=== PATIENT | male | born 1995 | race Caucasian/White ===

== ENCOUNTER 2021-11-04 17:58 | Emergency (ER) | payer BC, SELFPAY ==
[2021-11-04 18:09] VITALS: BP 132/94; PULSE 100; RESP 16; TEMP 37.2; O2SAT 99
--- NOTE | 2021-11-04 18:09 | ED.URI ---
HPI - URI/Sore Throat General Chief Complaint: Upper Respiratory Infection Stated Complaint: CONGESTION/HEADACHE/FEVER/BODY ACHES Time Seen by Provider: 11/04/21 18:09 Source: patient, family, RN notes reviewed and old records reviewed Mode of arrival: ambulatory Limitations: no limitations History of Present Illness HPI Narrative: 26 year old male accompanied by spouse with complaints of 3 day history of cough, congestion, sinus congestion with some headache pain, body aches, and fevers up to 100.8F today. Patient reports that he had the COVID vaccinations X2 no Booster or flu shot taken, Patient states that he has been taking Mucinex and Tylenol for his symptoms. MD elicited complaint: fever, cough, rhinorrhea, nasal congestion and other (headache) Onset (ago): day(s) (3) Consistency: constant Treatments prior to arrival: acetaminophen and other (mucinex) Related Data Allergies Allergy/AdvReac Type Severity Reaction Status Date / Time No Known Allergies Allergy Verified 11/04/21 18:08 Review of Systems Review of Systems: CONSTITUTIONAL: Positive for fever, chills, or sweats. EYES: Denies visual changes, redness, or discharge. ENT: Positive for rhinorrhea, congestion, no sore throat, or otalgia. CARDIOVASCULAR: Denies chest pain, palpitations, or edema. RESPIRATORY: Positive for cough or no dyspnea. GASTROINTESTINAL: Denies abdominal pain, nausea, vomiting, or diarrhea. GENITOURINARY: Denies dysuria or hematuria. SKIN: Denies rash or itching. MUSCULOSKELETAL: Denies back pain, joint pain,positive for body aches NEUROLOGIC: Positive for headache, no numbness, or weakness. PSYCHIATRIC: Denies anxiety or depression. All systems reviewed & are unremarkable except as noted in HPI and below PMFSH Past Medical History Medical History (Updated 11/04/21 @ 18:28 by Loan Echavarria NP) History of ear infections as a child Surgical History Surgical History (Updated 11/04/21 @ 18:22 by Loan Echavarria NP) History of placement of ear tubes Social History Social History (Updated 11/04/21 @ 18:23 by Loan Echavarria NP) Smoking status: Current every day smoker Tobacco type: e-cigarettes/vaping Alcohol intake: current Alcohol use details: social Substance use type: marijuana Living arrangements: with family Gender identity (if verbalized by the patient): Male Exam Narrative: GENERAL: Well-appearing, well-nourished, and in no acute distress. HEAD: Normocephalic, atraumatic. EYES: PERRLA and EOMI. ENT: Nares red with clear rhinorrhea no epistaxis. Mucous membranes moist.TM's normal with good light reflex, throat mild redness with no lesions or exudates, NECK: Supple.no lymphadenopathy CHEST: Clear to auscultation. No respiratory distress.Cough noted no tachypnea SAO2 99% on room air HEART: Regular rate and rhythm. No murmur heard. Normal peripheral pulses. ABDOMEN: Soft, nontender, nondistended, normal active bowel sounds. EXTREMITIES: Normal range of motion. No edema. SKIN: Warm, dry, no rash. NEURO: No focal deficits. Alert and oriented x3. Course Course Level of Care: Express Care Visit Vital Signs Vital signs: Vital Signs Temperature 37.2 C 11/04/21 18:09 Pulse Rate 100 11/04/21 18:09 Respiratory Rate 16 11/04/21 18:09 Blood Pressure 132/94 H 11/04/21 18:09 Pulse Oximetry 99 11/04/21 18:09 Temperature 37.2 C 11/04/21 18:09 Pulse Rate 100 11/04/21 18:09 Respiratory Rate 16 11/04/21 18:09 Blood Pressure 132/94 H 11/04/21 18:09 Pulse Oximetry 99 11/04/21 18:09 MDM - URI/Sore Throat Differential Diagnosis Differential diagnosis: Likely upper respiratory infection, sinusitis, viral infection, influenza and other Medical Records Attestation: I reviewed the patient's medical records. Lab Data Attestation: I reviewed the patient's lab results. Lab results narrative: Influenza A positive, Influenza B negative Covid antigen negative Labs: Lab Results 05
== END 2021-11-04 18:46 | disposition home or self-care (01) ==
PROVIDERS: Emergency Provider Registered Nurse; PCP Physician Assistant
DX: J10.1 Influenza due to other identified influenza virus with other respiratory manifestations (principal); Z20.822 Contact with and (suspected) exposure to COVID-19; F17.290 Nicotine dependence, other tobacco product, uncomplicated
CPT/HCPCS: 87426; 87804; 99213; C9803; G0463

== ENCOUNTER 2022-06-17 15:44 | Emergency (ER) | payer OTHER, BC, SELFPAY ==
[2022-06-17 15:54] VITALS: BP 131/77; PULSE 90; RESP 18; TEMP 36.9; O2SAT 100
--- NOTE | 2022-06-17 16:28 | ED.WOUNDLAC ---
HPI - Wound/Laceration General Chief Complaint: Wound/Laceration Stated Complaint: Cut Finger Lt Hand Source: patient Mode of arrival: ambulatory History of Present Illness HPI narrative: This is a 27-year-old male who presented to our urgent care with complaints of a laceration to his left pointer finger. 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 The patient denies SOB, CP, palpitation, extremity numbness, lightheadedness, dizziness, constipation, diarrhea, chills, or fever,sensations present, no neurovascular deficiency capillary refill within normal limits Related Data Home Medications Medication Instructions Recorded Confirmed No Home Medications 06/17/22 06/17/22 Allergies Allergy/AdvReac Type Severity Reaction Status Date / Time No Known Allergies Allergy Verified 06/17/22 15:51 Review of Systems Review of Systems: A 14 organ system Review of Systems was performed and pertinent positives included in the HPI, otherwise remaining ROS is negative. [facility] Past Medical History Medical History (Updated 11/05/21 @ 00:01 by Maynor Lloyd) History of ear infections as a child Surgical History Surgical History (Updated 11/04/21 @ 18:22 by Loan Echavarria NP) History of placement of ear tubes Social History Social History (Updated 11/04/21 @ 18:23 by Loan Echavarria NP) Smoking status: Current every day smoker Tobacco type: e-cigarettes/vaping Alcohol intake: current Alcohol use details: social Substance use type: marijuana Gender identity (if verbalized by the patient): Male Exam Narrative: GENERAL: This is a well-nourished, well-developed patient, in no apparent distress. HEAD: normocephalic, atraumatic. EYES: PERRL. Sclera clear/white. Vision is grossly intact. EARS: External ears normal, auditory canals clear and without drainage, TMs normal without perforation. Hearing grossly intact. NOSE: External nose normal with no obvious nasal discharge, nares without redness, no rhinorrhea. THROAT: Mucous membranes moist, posterior pharynx clear. NECK: Neck supple, non-tender without lymphadenopathy, masses or thyromegaly. CARDIOVASCULAR: Regular rate and rhythm without murmurs, gallops, or rubs. RESPIRATORY: Clear to auscultation. Breath sounds equal bilaterally. No wheezes, rales, or rhonchi. GASTROINTESTINAL: Abdomen soft, non-tender, nondistended. Bowel sounds are active. No hepato-splenomegaly, or palpable masses. No guarding. SKIN: warm, intact with no suspicious lesions or rash, good texture and turgor. NEURO: awake, alert, and oriented to person, place and time. There were no obvious focal neurologic abnormalities. EXTREMITIES: Normal range of motion. No edema. No calf tenderness. Laceration on the left when a finger laceration from the nail bed approximately 2 cm in size no obvious deep tissue injury Course Course Emergency Course: Patient will be given lidocaine 1% 5 mL with 5.0 Ethilon and Dermabond to laceration site Level of Care: Express Care Visit Vital Signs Vital signs: Vital Signs Temperature 98.5 F 06/17/22 15:54 Pulse Rate 90 06/17/22 15:54 Respiratory Rate 18 06/17/22 15:54 Blood Pressure 131/77 06/17/22 15:54 Pulse Oximetry 100 06/17/22 15:54 Oxygen Delivery Room Air 06/17/22 15:54 Temperature 98.5 F 06/17/22 15:54 Pulse Rate 90 06/17/22 15:54 Respiratory Rate 18 06/17/22 15:54 Blood Pressure 131/77 06/17/22 15:54 Pulse Oximetry 100 06/17/22 15:54 Oxygen Delivery Room Air 06/17/22 15:54 Procedures Laceration Laceration 1: Date: 06/17/22 Time: 16:58 Site: hand (Left pointer finger) Side (If applicable): left Size (cm): 2 Description: flap Depth: simple, single layer Local Anesthetic: lidocaine 1% Amount of anesthesia used (mL): 5 Pre-repair: irrigated ====== Skin Level ======
[2022-06-17] MEDS: TETANUS/DIPHTHERIA TOXOIDS ADSORB 0.5 ML VIAL (*BKC) IM (16:38)
== END 2022-06-17 17:05 | disposition home or self-care (01) ==
PROVIDERS: Emergency Provider Nurse Practitioner; PCP Physician Assistant
DX: S61.211A Laceration without foreign body of left index finger without damage to nail, initial encounter (principal); W26.0XXA Contact with knife, initial encounter; Z23 Encounter for immunization; F17.290 Nicotine dependence, other tobacco product, uncomplicated; F12.90 Cannabis use, unspecified, uncomplicated
CPT/HCPCS: 12001; 90471; 90714; 90715; 99212; G0463

== ENCOUNTER 2022-07-03 19:33 | Emergency (ER) | payer OTHER, BC, SELFPAY ==
--- NOTE | 2022-07-03 19:38 | ED.GENADULT ---
HPI - General Adult General Chief complaint: Extremity Injury, Upper Stated complaint: suture removal Time Seen by Provider: 07/03/22 19:38 Source: patient Mode of arrival: ambulatory Limitations: no limitations History of Present Illness HPI narrative: 27-year-old male patient presents to the [facility] to have sutures removed from left index finger. Patient states he cut left index finger about 2 weeks ago with a knife while at work. Patient states 1 of the sutures did fall out. Patient states he does have some numbing to the tip of the finger overall no other complaints. Denies any discharge from the wound. Related Data Home Medications Medication Instructions Recorded Confirmed mirtazapine 30 mg tablet 30 mg PO DAILY 07/03/22 07/03/22 Allergies Allergy/AdvReac Type Severity Reaction Status Date / Time No Known Allergies Allergy Verified 07/03/22 19:46 Review of Systems Review of Systems: CONSTITUTIONAL: Denies fever, chills, or sweats. EYES: Denies visual changes, redness, or discharge. ENT: Denies rhinorrhea, congestion, sore throat, or otalgia. CARDIOVASCULAR: Denies chest pain, palpitations, or edema. RESPIRATORY: Denies cough or dyspnea. GASTROINTESTINAL: Denies abdominal pain, nausea, vomiting, or diarrhea. GENITOURINARY: Denies dysuria or hematuria. SKIN: Denies rash or itching. Positive laceration to distal end of the left index finger with sutures intact MUSCULOSKELETAL: Denies back pain, joint pain, or myalgia. NEUROLOGIC: Denies headache, numbness, or weakness. PSYCHIATRIC: Denies anxiety or depression. [facility] Past Medical History Medical History History of ear infections as a child Surgical History Surgical History History of placement of ear tubes Social History Social History Smoking status: Current every day smoker Tobacco type: e-cigarettes/vaping Alcohol intake: current Alcohol use details: social Substance use type: marijuana Gender identity (if verbalized by the patient): Male Comments At the time of my signature I agree with nursing past medical history, surgical, social, and family history. There is no relevant family history pertinent to the presenting complaint. Exam Narrative: GENERAL: Well-appearing, well-nourished, and in no acute distress. HEAD: Normocephalic, atraumatic. EYES: PERRLA and EOMI. ENT: Nares clear, no rhinorrhea or epistaxis. Mucous membranes moist. NECK: Supple. No lymphadenopathy CHEST: Clear to auscultation. No respiratory distress. HEART: Regular rate and rhythm. No murmur heard. Normal peripheral pulses. ABDOMEN: Soft, nontender, nondistended, normal active bowel sounds. EXTREMITIES: Normal range of motion. No edema. SKIN: Warm, dry, no rash. patient has laceration to the distal tip of the left index finger that has very loose sutures attached proximally 3 sutures what appears to have been unraveled and Srikanth fallen out. The wound does still appear to be slightly open a gate pain not fully closed at this time however there is no discharge present there is no erythema, surrounding swelling. Patient does have decreased sensation to the tip of the left index finger. NEURO: No focal deficits. Alert and oriented x3. Course Course Level of Care: Express Care Visit Vital Signs Vital signs: Vital Signs Temperature 36.7 C 07/03/22 19:43 Pulse Rate 68 07/03/22 19:43 Respiratory Rate 18 07/03/22 19:43 Blood Pressure 132/81 07/03/22 19:43 Pulse Oximetry 100 07/03/22 19:43 Oxygen Delivery Room Air 07/03/22 19:43 Temperature 36.7 C 07/03/22 19:43 Pulse Rate 68 07/03/22 19:43 Respiratory Rate 18 07/03/22 19:43 Blood Pressure 132/81 07/03/22 19:43 Pulse Oximetry 100 07/03/22 19:43 Oxygen Delivery Room Air 07/03/22 19:43 vital signs r
[2022-07-03 19:43] VITALS: BP 132/81; PULSE 68; RESP 18; TEMP 36.7; O2SAT 100
== END 2022-07-03 19:58 | disposition home or self-care (01) ==
PROVIDERS: Emergency Provider Nurse Practitioner Family; PCP Physician Assistant
DX: S61.211D Laceration without foreign body of left index finger without damage to nail, subsequent encounter (principal); W26.0XXD Contact with knife, subsequent encounter; F17.290 Nicotine dependence, other tobacco product, uncomplicated; F12.90 Cannabis use, unspecified, uncomplicated
CPT/HCPCS: 99211; G0463